=== PATIENT | female | born 1955 | race Caucasian/White ===

== ENCOUNTER → 2021-08-08 | Outpatient (CLI) | payer OTHER ==
--- NOTE | 2021-08-08 13:53 | RAD ---
INDICATION: Reason: / Spl. Instructions: / History: Abdomen pain. COMPARISON: Ultrasound from same day TECHNIQUE: 5mCi of Tc99m Choletec was injected intravenously followed by scintigraphic images of the abdomen. FINDINGS: Appropriate radiotracer clearance from the blood pool. Appropriate radiotracer excretion into the biliary tree. Prompt passage of contrast into the small bowel. Visualization of the gallbladder prior to the 60 minute time point. IMPRESSION: * No scintigraphic evidence of acute cholecystitis or high grade biliary obstruction. Electronically signed by: Sina Mccarthy MD (08/08/2021 1:51 PM) [id number]
--- NOTE | 2021-08-08 15:07 | RAD ---
EXAM: ULTRASOUND ABDOMEN COMPLETE CLINICAL HISTORY: Reason: abd pain COMPARISON: None available. TECHNIQUE: Ultrasound of the upper abdomen was performed. FINDINGS: The head and body of the pancreas are unremarkable. The tail is obscured by intestinal gas.. The liver measures 9.9 cm in length in the right mid clavicular line. The hepatic margin is smooth a nd the hepatic echogenicity is normal. Hypoechogenic lesion in the posterior left lobe of liver macarena uring 1.7 x 1.9 cm with a thin septation most compatible with a cyst. Flow seen within the portal vei ns. The gallbladder is normal in appearance without evidence for cholelithiasis. There is no wall thicke rosemarie or pericholecystic fluid. There is no pain with direct transducer pressure over the gallbladder . The common bile duct measures 3 mm. The spleen measures 8.6 cm. The right kidney measures 9.6 cm in bipolar length. Normal renal cortical echotexture and thickness. No focal renal lesion, hydronephrosis or shadowing renal calculus. The left kidney measures 11.0 cm in bipolar length. Normal renal cortical echotexture and thickness. No focal renal lesion, hydronephrosis or shadowing renal calculus. Visualized portions of the abdominal aorta and inferior vena cava are unremarkable. There is no free fluid in the upper abdomen. IMPRESSION: Normal abdominal ultrasound. Electronically signed by: Bal Perez MD (08/08/2021 3:04 PM) [id number]
== END ==
LOC: US 09:13
PROVIDERS: ATTEND Family Medicine
DX: K76.89 Other specified diseases of liver (principal)
CPT/HCPCS: 76700; 78226; 96374; A9537